=== PATIENT | male | born 1985 | race African-American/Black ===

== ENCOUNTER 2017-04-16 08:59 | Emergency (ER) | payer SELFPAY ==
[~2017-04-16] VITALS: Ht 177.8 cm; Wt 80.0 kg
[2017-04-16 11:06] VITALS: BP 124/62
== END 2017-04-16 11:17 | disposition home or self-care (01) ==
LOC: ER 09:16
DX: F12.929 Cannabis use, unspecified with intoxication, unspecified (principal); Z88.0 Allergy status to penicillin
CPT/HCPCS: 82962; 99283